=== PATIENT | male | born 1990 | race Caucasian/White ===

== ENCOUNTER → 2022-08-13 | Outpatient (CLI) | payer BC ==
[~2022-08-13] MED LIST: AMOCLA875 PO; CIPR500 PO; METCAR500 PO; METPHE18ER; METPHE27ER
[2022-08-16 03:08] LABS: CHLAMYDIA TRACHOMATIS, NAA Positive (Negative)
== END ==
LOC: LAB SHORT 14:00
PROVIDERS: Nurse Practitioner
DX: R30.0 Dysuria (principal)
CPT/HCPCS: 87086; 87491; 87591